=== PATIENT | female | born 1950 | race Caucasian/White ===

== ENCOUNTER 2017-02-25 12:25 | Emergency (ER) | payer SELFPAY ==
--- NOTE | 2017-02-25 12:38 | Emergency Department Record ---
History of Present Illness - General Chief Complaint: Back Pain/Injury Stated Complaint: FALL Time Seen by Provider: 02/25/17 12:29 Source: Patient, RN notes reviewed Mode of Arrival: EMS - History of Present Illness Initial Comments: patient fell at work with thoracic back pain MD Complaint: Back pain, Back injury - Related Data Home Medications Medication Instructions Recorded Confirmed Last Taken Aspirin [Aspir-Low] 1 tab PO DAILY 02/25/17 02/25/17 02/25/17 Escitalopram Oxalate [Lexapro] 1 tab PO DAILY 02/25/17 02/25/17 02/25/17 Valacyclovir HCl [Valtrex] 1 tab PO DAILY 02/25/17 02/25/17 02/25/17 Previous Rx's Medication Instructions Recorded Cyclobenzaprine HCl [Flexeril] 10 mg PO TID #20 tablet 02/25/17 Hydrocodone/Acetaminophen [[place] 1 each PO Q4HR #20 tablet 02/25/17 5-325 Tablet] Allergies Allergy/AdvReac Type Severity Reaction Status Date / Time Penicillins Allergy RASH Verified 02/25/17 12:36 Disposition Clinical Impression: Lumbar strain, Thoracic myofascial strain, Contusion, knee Disposition: Home, Self-Care Condition: (1) Good Instructions: Low Back Strain (ED), Contusion in Adults (ED) Additional Instructions: follow up with family in 3 days ice to knee and back tylenol or motrin for mild pain Prescriptions: Hydrocodone/Acetaminophen [[place] 5-325 Tablet] 1 each PO Q4HR #20 tablet Cyclobenzaprine HCl [Flexeril] 10 mg PO TID #20 tablet Forms: Patient Portal Access Quality - Quality Measures Quality Measures: N/A - Blood Pressure Screening Does Patient Have Any of the Following: No Blood Pressure Classification: Pre-Hypertensive BP Reading Systolic Measurement: 137 Diastolic Measurement: 74 Screening for High Blood Pressure: < Pre-Hypertensive BP, F/U Documented > [ G8950] Pre-Hypertensive Follow-up Interventions: Referral to alternative/primary care provider.
--- NOTE | 2017-02-25 12:45 | Emergency Department Record ---
History of Present Illness - General Chief Complaint: Back Pain/Injury Stated Complaint: FALL Time Seen by Provider: 02/25/17 12:29 Source: Patient, RN notes reviewed - History of Present Illness Initial Comments: fall at [facility] working MD Complaint: Back injury Onset/Timin -: Minutes(s) Place: Work Radiation: None Severity: Moderate Severity scale (1-10): 2 Quality: Aching, Burning Consistency: Constant Improves With: None Worsens With: None Context: Fall Associated Symptoms: Denies other symptoms - Related Data Home Medications Medication Instructions Recorded Confirmed Last Taken Aspirin [Aspir-Low] 1 tab PO DAILY 02/25/17 02/25/17 02/25/17 Escitalopram Oxalate [Lexapro] 1 tab PO DAILY 02/25/17 02/25/17 02/25/17 Valacyclovir HCl [Valtrex] 1 tab PO DAILY 02/25/17 02/25/17 02/25/17 Previous Rx's Medication Instructions Recorded Cyclobenzaprine HCl [Flexeril] 10 mg PO TID #20 tablet 02/25/17 Hydrocodone/Acetaminophen [[place] 1 each PO Q4HR #20 tablet 02/25/17 5-325 Tablet] Allergies Allergy/AdvReac Type Severity Reaction Status Date / Time Penicillins Allergy RASH Verified 02/25/17 12:36 Travel Screening - Travel/Exposure Within Last 30 Days Have you traveled within the last 30 days?: No - Travel/Exposure Within Last Year Have you traveled outside the [place] in the last year?: No - Additonal Travel Details Have you been exposed to anyone with a communicable illness?: No Review of Systems Reviewed: No additional complaints except as noted below Constitutional: Reports: As per HPI. Denies: Chills, Fever, Malaise, Night sweats, Weakness, Weight change Eyes: Reports: As per HPI. Denies: Eye discharge, Eye pain, Photophobia, Vision change ENT: Reports: As per HPI. Denies: Congestion, Dental pain, Ear pain, Epistaxis , Hearing loss, Throat pain Respiratory: Reports: As per HPI. Denies: Cough, Dyspnea, Hemoptysis, Stridor, Wheezes Cardiovascular: Reports: As per HPI. Denies: Arrhythmia, Chest pain, Dyspnea on exertion, Edema, Murmurs, Orthopnea, Palpitations, Paroxysmal nocturnal dyspnea, Rheumatic Fever, Syncope Endocrine: Reports: As per HPI. Denies: Fatigue, Heat or cold intolerance, Polydipsia, Polyuria Gastrointestinal: Reports: As per HPI. Denies: Abdominal pain, Constipation, Diarrhea, Hematemesis, Hematochezia, Melena, Nausea, Vomiting Genitourinary: Reports: As per HPI. Denies: Abnormal menses, Discharge, Dyspareunia, Dysuria, Frequency, Hematuria, Incontinence, Retention, Urgency Musculoskeletal: Reports: As per HPI, Back pain. Denies: Arthralgia, Gout, Joint swelling, Myalgia, Neck pain Skin: Reports: As per HPI. Denies: Bruising, Change in color, Change in hair/ nails, Lesions, Pruritus, Rash Neurological: Reports: As per HPI. Denies: Abnormal gait, Confusion, Headache, Numbness, Paresthesias, Seizure, Tingling, Tremors, Vertigo, Weakness Psychiatric: Reports: As per HPI. Denies: Anxiety, Auditory hallucinations, Depression, Homicidal thoughts, Suicidal thoughts, Visual hallucinations Hematological/Lymphatic: Reports: As per HPI. Denies: Anemia, Blood Clots, Easy bleeding, Easy bruising, Swollen glands Past Medical History - SOCIAL HISTORY Smoking Status: Never smoker Alcohol Use: None Drug Use: None - RESPIRATORY Hx Respiratory Disorders: No - CARDIOVASCULAR Hx Cardio Disorders: No - NEURO Hx Neuro Disorders: No - GI Hx GI Disorders: No - Hx Genitourinary Disorders: No - ENDOCRINE Hx Endocrine Disorders: No - MUSCULOSKELETAL Hx Musculoskeletal Disorders: No - PSYCH Hx Psych Problems: No - HEMATOLOGY/ONCOLOGY Hx Cancer: Yes (breast) Hx Radiation Therapy: Yes Family Medical History Any Significant Family History?: Yes Hx Cancer: Grandparents Hx Diabetes: Mother Hx Heart Disease: Father, Mother Physical Exam - General General Appearance: Alert, Oriented x3, Cooperative, Mild distress - Head Head exam: Normal inspection - Eye Eye exam: Normal appearance, PERRL Pupils: Normal accommodation - ENT ENT exam: Normal exam, Mucous membranes moist, Normal external ear exam, Normal orophraynx, TM's normal bilaterally Ear exam: Normal external inspection. negative: External canal tenderness Nasal Exam: Normal inspection. negative: Discharge, Sinus tenderness Mouth exam: Normal external inspection, Tongue normal Teeth exam: Normal inspection. negative: Dental caries Throat exam: Normal inspection. negative: Tonsillar erythema, Tonsillar exudate - Neck Neck exam: Normal inspection, Full ROM. negative: Tenderness - Respiratory Respiratory exam: Normal lung sounds bilaterally. negative: Respiratory distress - Cardiovascular Cardiovascular Exam: Regular rate, Normal rhythm, Normal heart sounds - GI/Abdominal GI/Abdominal exam: Soft, Normal bowel sounds. negative: Tenderness - Rectal Rectal exam: Deferred - exam: Deferred - Extremities Extremities exam: Normal inspection, Full ROM, Normal capillary refill, Tenderness (left knee pain) - Back Back exam: Reports: Normal inspection, Full ROM, Tenderness (thoracic and lumbar pain), Vertebral tenderness. Denies: Muscle spasm, Rash noted - Neurological Neurological exam: Alert, Normal gait, Oriented X3, Reflexes normal - Psychiatric Psychiatric exam: Normal affect, Normal mood - Skin Skin exam: Dry, Intact, Normal color, Warm Course Vital Signs 02/25/17 12:28 Temperature 98.3 F Pulse Rate 76 Respiratory 20 Rate Blood Pressure 137/74 Pulse Ox 96 Medical Decision Making - Data Complexity MDM Data: X-Ray Ordered and/or Reviewed (no fractures seen) Disposition Clinical Impression: Lumbar strain Qualifiers: Encounter type: initial encounter Qualified Code(s): S39.012A - Strain of muscle, fascia and tendon of lower back, initial encounter Thoracic myofascial strain Qualifiers: Encounter type: initial encounter Qualified Code(s): S29.019A - Strain of muscle and tendon of unspecified wall of thorax, initial encounter Contusion, knee Qualifiers: Encounter type: initial encounter Laterality: left Qualified Code(s): S80.02XA - Contusion of left knee, initial encounter Disposition: Home, Self-Care Condition: (1) Good Instructions: Low Back Strain (ED), Contusion in Adults (ED) Additional Instructions: follow up with family in 3 days ice to knee and back tylenol or motrin for mild pain Prescriptions: Hydrocodone/Acetaminophen [[place] 5-325 Tablet] 1 each PO Q4HR #20 tablet Cyclobenzaprine HCl [Flexeril] 10 mg PO TID #20 tablet Forms: Patient Portal Access Quality - Quality Measures Quality Measures: N/A - Blood Pressure Screening Does Patient Have Any of the Following: No Blood Pressure Classification: Pre-Hypertensive BP Reading Systolic Measurement: 137 Diastolic Measurement: 74 Screening for High Blood Pressure: < Pre-Hypertensive BP, F/U Documented > [ G8950] Pre-Hypertensive Follow-up Interventions: Referral to alternative/primary care provider.
--- NOTE | 2017-02-25 13:16 | Emergency Department Record ---
History of Present Illness - General Chief Complaint: Back Pain/Injury Stated Complaint: FALL Time Seen by Provider: 02/25/17 12:29 Source: Patient, RN notes reviewed - History of Present Illness Onset/Timin -: Minutes(s) Place: Work Radiation: None Severity: Moderate Severity scale (1-10): 2 Quality: Aching, Burning Consistency: Constant Improves With: None Worsens With: None Context: Fall Associated Symptoms: Denies other symptoms - Related Data Home Medications Medication Instructions Recorded Confirmed Last Taken Aspirin [Aspir-Low] 1 tab PO DAILY 02/25/17 02/25/17 02/25/17 Escitalopram Oxalate [Lexapro] 1 tab PO DAILY 02/25/17 02/25/17 02/25/17 Valacyclovir HCl [Valtrex] 1 tab PO DAILY 02/25/17 02/25/17 02/25/17 Previous Rx's Medication Instructions Recorded Cyclobenzaprine HCl [Flexeril] 10 mg PO TID #20 tablet 02/25/17 Hydrocodone/Acetaminophen [[place] 1 each PO Q4HR #20 tablet 02/25/17 5-325 Tablet] Allergies Allergy/AdvReac Type Severity Reaction Status Date / Time Penicillins Allergy RASH Verified 02/25/17 12:36 Travel Screening - Travel/Exposure Within Last 30 Days Have you traveled within the last 30 days?: No - Travel/Exposure Within Last Year Have you traveled outside the [place] in the last year?: No - Additonal Travel Details Have you been exposed to anyone with a communicable illness?: No Review of Systems Constitutional: Reports: As per HPI. Denies: Chills, Fever, Malaise, Night sweats, Weakness, Weight change Eyes: Reports: As per HPI. Denies: Eye discharge, Eye pain, Photophobia, Vision change ENT: Reports: As per HPI. Denies: Congestion, Dental pain, Ear pain, Epistaxis , Hearing loss, Throat pain Respiratory: Reports: As per HPI. Denies: Cough, Dyspnea, Hemoptysis, Stridor, Wheezes Cardiovascular: Reports: As per HPI. Denies: Arrhythmia, Chest pain, Dyspnea on exertion, Edema, Murmurs, Orthopnea, Palpitations, Paroxysmal nocturnal dyspnea, Rheumatic Fever, Syncope Endocrine: Reports: As per HPI. Denies: Fatigue, Heat or cold intolerance, Polydipsia, Polyuria Gastrointestinal: Reports: As per HPI. Denies: Abdominal pain, Constipation, Diarrhea, Hematemesis, Hematochezia, Melena, Nausea, Vomiting Genitourinary: Reports: As per HPI. Denies: Abnormal menses, Discharge, Dyspareunia, Dysuria, Frequency, Hematuria, Incontinence, Retention, Urgency Musculoskeletal: Reports: As per HPI, Back pain. Denies: Arthralgia, Gout, Joint swelling, Myalgia, Neck pain Skin: Reports: As per HPI. Denies: Bruising, Change in color, Change in hair/ nails, Lesions, Pruritus, Rash Neurological: Reports: As per HPI. Denies: Abnormal gait, Confusion, Headache, Numbness, Paresthesias, Seizure, Tingling, Tremors, Vertigo, Weakness Psychiatric: Reports: As per HPI. Denies: Anxiety, Auditory hallucinations, Depression, Homicidal thoughts, Suicidal thoughts, Visual hallucinations Hematological/Lymphatic: Reports: As per HPI. Denies: Anemia, Blood Clots, Easy bleeding, Easy bruising, Swollen glands Past Medical History - SOCIAL HISTORY Smoking Status: Never smoker Alcohol Use: None Drug Use: None - RESPIRATORY Hx Respiratory Disorders: No - CARDIOVASCULAR Hx Cardio Disorders: No - NEURO Hx Neuro Disorders: No - GI Hx GI Disorders: No - Hx Genitourinary Disorders: No - ENDOCRINE Hx Endocrine Disorders: No - MUSCULOSKELETAL Hx Musculoskeletal Disorders: No - PSYCH Hx Psych Problems: No - HEMATOLOGY/ONCOLOGY Hx Cancer: Yes (breast) Hx Radiation Therapy: Yes Family Medical History Any Significant Family History?: Yes Hx Cancer: Grandparents Hx Diabetes: Mother Hx Heart Disease: Father, Mother Course Vital Signs 02/25/17 12:28 Temperature 98.3 F Pulse Rate 76 Respiratory 20 Rate Blood Pressure 137/74 Pulse Ox 96 Disposition Clinical Impression: Lumbar strain Qualifiers: Encounter type: initial encounter Qualified Code(s): S39.012A - Strain of muscle, fascia and tendon of lower back, initial encounter Thoracic myofascial strain Qualifiers: Encounter type: initial encounter Qualified Code(s): S29.019A - Strain of muscle and tendon of unspecified wall of thorax, initial encounter Contusion, knee Qualifiers: Encounter type: initial encounter Laterality: left Qualified Code(s): S80.02XA - Contusion of left knee, initial encounter Disposition: Home, Self-Care Condition: (1) Good Instructions: Low Back Strain (ED), Contusion in Adults (ED) Additional Instructions: follow up with family in 3 days ice to knee and back tylenol or motrin for mild pain Prescriptions: Hydrocodone/Acetaminophen [[place] 5-325 Tablet] 1 each PO Q4HR #20 tablet Cyclobenzaprine HCl [Flexeril] 10 mg PO TID #20 tablet Forms: Patient Portal Access Quality - Quality Measures Quality Measures: N/A - Blood Pressure Screening Does Patient Have Any of the Following: No Blood Pressure Classification: Pre-Hypertensive BP Reading Systolic Measurement: 137 Diastolic Measurement: 74 Screening for High Blood Pressure: < Pre-Hypertensive BP, F/U Documented > [ G8950] Pre-Hypertensive Follow-up Interventions: Referral to alternative/primary care provider.
--- NOTE | 2017-02-27 15:43 | RADIOLOGY REPORT ---
EXAM: THORACIC SPINE HISTORY: BACK PAIN STATUS POST FALL. TECHNIQUE: AP, lateral, and swimmer's views of the thoracic spine were obtained. COMPARISON: Previous chest x-ray dated September 20, 2016. ENCOUNTER: Initial. FINDINGS: There is minor dextroconvex curvature within the thoracic spine. The thoracic intervertebral disc spaces and vertebral body heights are maintained. There is no acute fracture or subluxation. There are no significant degenerative changes. IMPRESSION: NO ACUTE THORACIC SPINE PATHOLOGY. J[facility]BER: [id number] [facility]
--- NOTE | 2017-02-27 15:48 | RADIOLOGY REPORT ---
EXAM: LUMBAR SPINE / AP LAT HISTORY: BACK PAIN STATUS POST FALL. TECHNIQUE: AP, lateral, and lateral spot views of the lumbar spine were obtained. COMPARISON: None. ENCOUNTER: Initial. FINDINGS: There are five lumbar vertebral segments. There is mild disc space narrowing of the L3-4 level and moderate disc space narrowing of the L5-S1 level. There are mild associated endplate degenerative changes. Mild facet arthropathy is present within the lower lumbar levels. The vertebral body heights are maintained. There is no spondylolisthesis or acute compression fracture. There are mild arthritic changes within the SI joints bilaterally. The bony pelvis appears intact. IMPRESSION: 1. MULTILEVEL DEGENERATIVE DISC DISEASE AND FACET ARTHROPATHY. 2. NO ACUTE LUMBAR SPINE PATHOLOGY. JOB NUMBER: [id number] [facility]
--- NOTE | 2017-02-27 15:52 | RADIOLOGY REPORT ---
EXAM: KNEE, LEFT 4 VIEWS HISTORY: ANTERIOR AND MEDIAL LEFT KNEE PAIN STATUS POST FALL. TECHNIQUE: Four views of the left knee were obtained. COMPARISON: None. ENCOUNTER: Initial. FINDINGS: The bones are osteopenic but appear intact. There is mild joint space narrowing within the medial compartment. Small marginal osteophytes are present within all three compartments and are greatest medially. There is no acute fracture or joint effusion. IMPRESSION: 1. MILD TRICOMPARTMENTAL ARTHRITIC CHANGES, WHICH ARE GREATEST MEDIALLY. 2. NO ACUTE LEFT KNEE PATHOLOGY. J[facility]BER: [id number] [facility]
== END 2017-02-25 13:30 | disposition home or self-care (01) ==
LOC: ER 12:25
DX: S39.012A Strain of muscle, fascia and tendon of lower back, initial encounter (principal); S29.019A Strain of muscle and tendon of unspecified wall of thorax, initial encounter; S80.02XA Contusion of left knee, initial encounter; W18.30XA Fall on same level, unspecified, initial encounter; Y93.F9 Activity, other caregiving; Y92.129 Unspecified place in nursing home as the place of occurrence of the external cause; Y99.0 Civilian activity done for income or pay
CPT/HCPCS: 72072; 72100; 99283; 99284

== ENCOUNTER 2017-02-26 11:48 | Emergency (ER) | payer OTHER ==
--- NOTE | 2017-02-26 12:05 | Emergency Department Record ---
History of Present Illness - General Chief Complaint: Neck Injury/Pain Stated Complaint: NECK AND HEAD PAIN Time Seen by Provider: 02/26/17 11:55 Source: Patient Mode of Arrival: Ambulatory Limitations: No limitations - History of Present Illness Initial Comments: The patient is here due to a fall yesterday. She tripped and fell forward onto the floor at work and then a plastic cart fell on top of her head. There was no LOC but she was having some spine pain. Today she is having more neck pain and mild nausea. Also she feels like her hearing is a little off and she is having muffled hearing sounds. There are no visual changes, blurred vision, severe head pain, vomiting, balance issues or confusion. She did drive her with no difficulty. MD Complaint: Neck pain Onset/Timin -: Hour(s) Place: Work Radiation: Head Severity: Constant Severity scale (1-10): 5 Quality: Aching Consistency: Constant Improves With: None Worsens With: Medication Context: Direct blow, Fall Associated Symptoms: None Treatments Prior to Arrival: Ibuprofen Treatment Prior to Arrival Comment:: Advil at 1100 - Related Data Previous Rx's Medication Instructions Recorded Cyclobenzaprine HCl [Flexeril] 10 mg PO TID #20 tablet 02/25/17 Hydrocodone/Acetaminophen [[place] 1 each PO Q4HR #20 tablet 02/25/17 5-325 Tablet] Allergies Allergy/AdvReac Type Severity Reaction Status Date / Time Penicillins Allergy RASH Verified 02/26/17 11:55 Travel Screening - Travel/Exposure Within Last 30 Days Have you traveled within the last 30 days?: No Review of Systems Constitutional: Denies: Chills, Fever Eyes: Denies: Eye discharge ENT: Denies: Congestion Respiratory: Denies: Cough, Dyspnea Past Medical History - SOCIAL HISTORY Smoking Status: Never smoker Alcohol Use: None Drug Use: None - RESPIRATORY Hx Respiratory Disorders: No - CARDIOVASCULAR Hx Cardio Disorders: No - NEURO Hx Neuro Disorders: No - GI Hx GI Disorders: No - Hx Genitourinary Disorders: No - ENDOCRINE Hx Endocrine Disorders: No - MUSCULOSKELETAL Hx Musculoskeletal Disorders: No - PSYCH Hx Psych Problems: No - HEMATOLOGY/ONCOLOGY Hx Cancer: Yes (breast) Hx Radiation Therapy: Yes Family Medical History Any Significant Family History?: Yes Hx Cancer: Grandparents Hx Diabetes: Mother Hx Heart Disease: Father, Mother Physical Exam - General General Appearance: Alert, Oriented x3, Cooperative, No acute distress - Head Head exam: Atraumatic, Normocephalic, Normal inspection (There are no signs of any head trauma.) - Eye Eye exam: Normal appearance, PERRL - ENT ENT exam: Normal exam, Mucous membranes moist, Normal external ear exam, Normal orophraynx, TM's normal bilaterally Throat exam: Normal inspection. negative: Tonsillar erythema, Tonsillar exudate - Neck Neck exam: Normal inspection, Full ROM, Tenderness (There is very mild mid to upper Cspine tenderness.) - Respiratory Respiratory exam: Normal lung sounds bilaterally. negative: Respiratory distress - Cardiovascular Cardiovascular Exam: Regular rate, Normal rhythm, Normal heart sounds - GI/Abdominal GI/Abdominal exam: Soft, Normal bowel sounds. negative: Tenderness - Extremities Extremities exam: Normal inspection, Full ROM, Normal capillary refill. negative: Tenderness - Neurological Neurological exam: Alert, Normal gait, Oriented X3, Other (Neg Drift and Rhomberg exams.). negative: Abnormal gait, Altered, Motor sensory deficit Course Vital Signs 02/26/17 11:51 Temperature 98.4 F Pulse Rate 74 Respiratory 18 Rate Blood Pressure 135/73 Pulse Ox 98 - Reevaluation(s) Reevaluation #1: The patient is doing well. She states she is still having mild neck pain and ' muffled" sounds related to her hearing but she is hearing everything satisfactorily. I explained to her that I feel her neck pain is due to a cervical strain from the fall but am at a loss to explain the hearing issue. Her exam is normal and head CT normal so she is to F/U with her PCP for recheck of her hearing. 02/26/17 12:56 Medical Decision Making - Data Complexity MDM Data: X-Ray Ordered and/or Reviewed - Radiology Data Radiology results: Report reviewed (Head CT: Neg CSPine: Neg.) Disposition Disposition: Discharge Clinical Impression: Cervical strain, acute Qualifiers: Encounter type: initial encounter Qualified Code(s): S16.1XXA - Strain of muscle, fascia and tendon at neck level, initial encounter Disposition: Home, Self-Care Condition: (1) Good Instructions: Cervical Sprain (ED) Additional Instructions: Please continue your home pain medicines. Please see your PCP or Occupational Health provider later this week for recheck of your pain and hearing issues. Return to the ER for any new or worsening problems. Forms: Patient Portal Access Time of Disposition: 12:59 Quality - Quality Measures Quality Measures: N/A - Blood Pressure Screening View Details: Yes Does Patient Have Any of the Following: No Blood Pressure Classification: Normal BP Reading Systolic Measurement: 114 Diastolic Measurement: 70 Screening for High Blood Pressure: < Normal BP, F/U Not Required > [G8715]
--- NOTE | 2017-02-28 09:43 | CT SCAN REPORT ---
EXAM: EMERGENCY HEAD CT HISTORY: PATIENT FELL YESTERDAY WITH HEADACHE AND NAUSEA, HEADACHE PARTICULARLY NEAR THE BASE OF THE SKULL POSTERIORLY. TECHNIQUE: Axial CT scan of the head was performed without IV contrast. Comparison: No prior head CT with which to compare. Encounter: Initial. FINDINGS: No definite acute intracranial hemorrhage identified. No focal mass effect or midline shift evident. No definite acute infarct or intracranial mass lesion is seen. Small cyst or polyp in the floor of the left maxillary antrum. No depressed calvarial fracture is evident. IMPRESSION: 1. NO DEFINITE ACUTE INTRACRANIAL HEMORRHAGE OR FOCAL MASS EFFECT IDENTIFIED. 2. SMALL CYST OR POLYP IN THE FLOOR OF THE LEFT MAXILLARY ANTRUM. JOB NUMBER: [id number] [facility]
--- NOTE | 2017-02-28 09:48 | RADIOLOGY REPORT ---
EXAM: CERVICAL SPINE HISTORY: PATIENT FELL YESTERDAY, OBJECT HIT BACK OF HEAD. TECHNIQUE: Six views of the cervical spine were obtained. Comparison: None. Encounter: Initial. FINDINGS: Normal cervical lordosis is maintained. No prevertebral soft tissue swelling evident. Narrowing at multiple cervical interspaces most marked at the C6-C7 level, with hypertrophic spurring most prominent at this level. Degenerative change at the odontoid-anterior arch of C1 articulation as well. No definite fracture of the cervical spine seen. No appreciable subluxation evident. IMPRESSION: 1. DEGENERATIVE CHANGES IN THE CERVICAL SPINE. 2. NO DEFINITE FRACTURE OR PREVERTEBRAL SOFT TISSUE SWELLING EVIDENT. JOB NUMBER: [id number] [facility]
== END 2017-02-26 13:19 | disposition home or self-care (01) ==
LOC: ER 11:48
DX: S16.1XXA Strain of muscle, fascia and tendon at neck level, initial encounter (principal); H91.8X9 Other specified hearing loss, unspecified ear; R51 Headache; R11.0 Nausea; W01.0XXA Fall on same level from slipping, tripping and stumbling without subsequent striking against object, initial encounter; Y99.0 Civilian activity done for income or pay
CPT/HCPCS: 70450; 72050; 99283; 99284

== ENCOUNTER 2019-03-24 08:19 | Day surgery (SDC) | payer OTHER, MEDICARE ==
[2019-03-24] MEDS ORDERED: PROPOFOL 10 MG/ML VIAL IV ONE (08:20)
[2019-03-24] MEDS ORDERED: LIDOCAINE 2% MDV (20MG/ML) 20ML VIAL IV ONE (08:20)
--- NOTE | 2019-03-24 14:30 | Operative Note ---
OPERATION: COLONOSCOPY to the cecum. INDICATION: Colorectal cancer screening. The patient's last examination was 2008 and was unremarkable. She returns at this time for screening. ANESTHESIA: Intravenous sedation was administered by the department of anesthesiology and included Diprivan titrated to effect. PROCEDURE: Following informed consent from this alert individual including a discussion of the risks and benefits of the procedure and an opportunity for the patient to ask questions, the patient was in the left lateral decubitus position. A digital rectal examination was performed. No abnormalities were noted. Following this, the Olympus [id number] video colonoscope was inserted into the rectum without resistance. The rectal mucosa had a normal appearance with normal folds and distensibility. The colonoscope was advanced up through the remainder of the bowel without difficulty to the level of the cecum. The cecum was well defined by noting the appendiceal orifice and ileocecal valve. Overall, the colon preparation was good. From the base of the cecum, the colonoscope was then slowly withdrawn. No abnormalities were noted throughout. Retroflexion in the rectum was endoscopically normal. The endoscope was straightened and removed. The patient tolerated the procedure well and was returned to the recovery area in stable condition. IMPRESSION: Unremarkable colonoscopy to the cecum. RECOMMENDATIONS: The patient was advised to have recheck colonoscopy in 10 years' time or sooner if problems arise. Followup will otherwise be with Des Weston DO. As always, thank you for allowing me to participate in the care of your patient. CHAD
== END 2019-03-24 10:15 | disposition home or self-care (01) ==
LOC: HOP 08:19
PROVIDERS: ATTEND Internal Medicine Gastroenterology
DX: Z12.11 Encounter for screening for malignant neoplasm of colon (principal)
CPT/HCPCS: 00812; G0121